=== PATIENT | male | born 1995 | race Hispanic/Latino ===

== ENCOUNTER 2019-10-06 15:21 | Outpatient (CLI) | payer MEDICAID, SELFPAY ==
--- NOTE | ~2019-10-06 | XR_ITS ---
EXAMINATION: XR scoliosis survey DATE: 10/06/2019 16:34 INDICATION: Scoliosis TECHNIQUE: Standing frontal and lateral projections entire spine from the base of the skull through t he pelvis were obtained on separate overlapping images. COMPARISON: None. FINDINGS: , Complement of 7 cervical, 12 paired rib-bearing thoracic and 5 nonrib-bearing lumbar segments. Mild lumbar levorotoscoliosis with 10 degrees levocurvature measured between T12 and L4. Sagittal alignme nt is normal. Vertebral body and disc heights are normal. The apex of the right femoral head lies 7 m m cephalad to the apex of the left femoral head resulting in slight leftward pelvic tilt. The plumbli ne from the epicenter of C7 lies approximately 10 mm the left of the epicenter of S1. Lungs are clear . Heart size is normal. Normal bowel gas pattern. IMPRESSION: 1. Mild lumbar levorotoscoliosis. Reviewed, dictated and finalized at [facility]. [employer]
== END 2019-10-06 15:22 | disposition home or self-care (01) ==
LOC: ANHIMG 15:32
PROVIDERS: PCP Family Medicine; Visit Provider Family Medicine
DX: M99.02 Segmental and somatic dysfunction of thoracic region (principal); M99.03 Segmental and somatic dysfunction of lumbar region
CPT/HCPCS: 72082

== ENCOUNTER 2019-12-14 08:30 | Outpatient (RCR) | payer OTHER, SELFPAY ==
--- NOTE | 2019-11-17 09:21 | PTOPEVAL ---
PHYSICAL THERAPY EVALUATION AND PLAN OF CARE 11-17-2019 The PT evaluation was completed today for the diagnosis of scoliosis of spine and chronic back pain. The plan of treatment is scheduled for 2x/week for 4 weeks. Thank you for referring Austen Reaves to [facility]. Please review, sign, date and return this plan of care CARMELITA. I agree with and certify that the following plan of care is medically necessary. Referring Physician Date Attending Provider: Collette Bauer MD *PT Outpatient Evaluation Start: 11/17/19 08:31 Document 11/17/19 08:31 JEWEL (Rec: 11/17/19 09:21 JEWEL [id number]) Outpatient Past Medical History Past Medical History Source of Past Medical History Patient Neurological History Hx Neurological Disorders No Significant History Cardiovascular History Hx Hypercholesterolemia Yes: no meds, just watching Respiratory History Hx Respiratory Disorders No Significant History Gastrointestinal History Hx Gastrointestinal Disorders No Significant History Genitourinary History Hx Genitourinary Disorders No Significant History Musculoskeletal History Hx Back Pain Yes: scoliosis of spine Hematological History Hx Hematological Disorders No Significant History Endocrine History Hx Endocrine Disorders No Significant History HEENT History Hx HEENT Disorders No Significant History Evaluation Information Problem Diagnosis scoliosis of spine, chronic back pain Onset 2 months ago Subjective Information gradual increase back pain, Query Text:As Reported By Patient/ with work doing--[employer]; Family worse over the past 4 years; about 2 months ago, when stopped working as much, pain is worse; going to do MRI- but insurance not approved it yet Diagnostic Tests X-Rays For This Problem Yes: scoliosis of spine; Previous Treatments Previous Treatments For This Problem no PT for back Prior Level of Function Activity Level (Last 3 Months) Occupation [employer];not doing heavy lifting; now driving trailers, managing job sites; Hand Dominance Right Activity of Daily Living Ability Independent Indoor/Home Mobility Independent Community Mobility Independent Stairs Ability Independent Functional Cognition (Planning, Shopping Independent , Taking Medications) Cooking Yes Cleaning Yes Laundry Yes Shopping Yes Driving Yes Medications Home Meds (Include: OTC, RX, Vitamins, m
--- NOTE | 2019-12-05 08:39 | PCPTNOTE ---
Patient called & cancelled scheduled appointment this date stated unable to make it.
--- NOTE | 2019-12-14 09:16 | PTOPEVAL ---
PHYSICAL THERAPY DISCHARGE 12-14-2019 Austen has received 8 PT sessions, from November 16 to today, for the diagnosis of scoliosis and chronic back pain. Compared to the initial evaluation: pain rating is the same; he has improved with reported sleeping tolerance, standing trunk posture/position, posture awareness, thoracic motion with trunk rotation and all 4 arch/sag stretch, performs correct lifting technique with floor/waist lift and has a good home exercise program. He continues to report increased pain with [employer] and physical activity. And has muscle spasms over thoracic paraspinals on R and L. Thank you for referring Austen Reaves to [facility]. Please review, sign, date and return this plan of care CARMELITA. I agree with and certify that the following plan of care is medically necessary. Referring Physician Date Attending Provider: Collette Bauer MD *PT Outpatient Discharge Document 12/14/19 08:30 JEWEL (Rec: 12/14/19 09:12 JEWEL [id number]) Subjective Information Austen reports: back hurts all time; cannot do madyson-makes pain worse; Pain Assessment Timing of Pain Assessment Timing of Pain Assessment Assessment Pain Scale Pain Scale Used Numeric (1 - 10) Self Report Pain Assessment Bilateral Back Reported Pain Level 4 Pain Description Sharp,Tightness Pain Frequency Chronic Other Pain Description tense in back: thoracic and upper lumbar paraspinals Lowest Pain Intensity 4 Greatest Pain Intensity 7 Pain Aggravating Factors Exercise/Activity Other Pain Aggravating Factors [employer] work 7 hours;with sleeping awaken 1-2x/wk Pain Behaviors Anxious,Grimacing Pain Relief Interventions Used By Inactivity/Rest,Medication, Patient Position Change Other Alleviating Interventions stretch; medicine:hydrocodone PRN- once/wk Additional Pain Comments has not used heat at home- discussed PRN use to decrease muscle tightness Pain Score Pain Score 4: Self Report Lower Extremity Muscle Strength Testing General Lower Extremity Strength Gross Lower Extremity Strength B UE Lift floor/waist: max lift for 3 reps: 40#-reports stop due to getting heavy and if any heavier would start to use back muscles to lift it recumbant bike level 2 resistance x 5 minutes; all 4 arch/sag with minimal thoracic motion; with Alt arm /leg lift decreased stability over lumbar area; prone knee fle
== END 2019-12-14 11:00 | disposition home or self-care (01) ==
LOC: ANHPT 08:30
PROVIDERS: PCP Family Medicine; Visit Provider Family Medicine
DX: M41.9 Scoliosis, unspecified (principal)
CPT/HCPCS: 97014; 97110; 97140; 97161; G0283

== ENCOUNTER 2020-02-11 09:32 | Emergency (ER) | payer OTHER, SELFPAY ==
[2020-02-11 09:40] VITALS: BP 133/72; PULSE 65; RESP 18; TEMP 36.2; O2SAT 100
[2020-02-11 10:24] VITALS: BP 125/85; PULSE 68; RESP 20; O2SAT 100
--- NOTE | 2020-02-11 10:46 | ED.GENADULT ---
HPI - General Adult General Chief complaint: Headache Stated complaint: lyon/vomiting Time Seen by Provider: 02/11/20 10:42 Source: patient Mode of arrival: ambulatory Limitations: no limitations History of Present Illness HPI narrative: 24-year-old male patient presents to the [facility] with complaints of a headache that started about 4 5:00 this morning. Patient states it is a frontal headache and rates it 10 out of 10. Patient states he is also vomited 7 times. Complains of photophobia but denies any sensitivity to sound. Patient denies any recent injury, falls are trauma to the head. Patient denies any recent alcohol or drug use. Patient states he had a migraine headache similar to this last week and states he just kind of toughing it out and it did go away. 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 Patient denies taking anything for the headache prior to arrival today. Patient denies any weakness on one side of the body of the other. Denies any pain with urination. Patient denies any fevers. Chest pain, shortness of breath or abdominal pain. Related Data Allergies Allergy/AdvReac Type Severity Reaction Status Date / Time No Known Allergies Allergy Verified 02/11/20 09:42 Review of Systems Review of Systems: Narrative: CONSTITUTIONAL: Denies fever, chills, or sweats. EYES: Denies visual changes, redness, or discharge. ENT: Denies rhinorrhea, congestion, sore throat, or otalgia. CARDIOVASCULAR: Denies chest pain, palpitations, or edema. RESPIRATORY: Denies cough or dyspnea. GASTROINTESTINAL: Denies abdominal pain, nausea, vomiting, or diarrhea. GENITOURINARY: Denies dysuria or hematuria. SKIN: Denies rash or itching. MUSCULOSKELETAL: Denies back pain, joint pain, or myalgia. NEUROLOGIC: Positive frontal headache, denies numbness, or weakness. PSYCHIATRIC: Denies anxiety or depression. PMFSH Social History Social History Gender identity (if verbalized by the patient): Male Comments At the time of my signature I agree with nursing past medical history, surgical, social, and family history. There is no relevant family history pertinent to the presenting complaint. Exam Narrative: Exam Narrative: GENERAL: Well-appearing, well-nourished, and in no acute distress. HEAD: Normocephalic, atraumatic. EYES: PERRLA and EOM intact without limitation or complaint of pain, no periorbital soft tissue swelling ,no erythema, warmth or tenderness noted, no obvious deformity. No crusting or swelling.no tearing or draining. photophobia present. No nystagmus No FB or lesion on lid eversion. Corneas grossly clear, no obvious FB or hyphens/hypopyon. No injection to sclera. Lids and lashes clear.. ENT: Nares with erythema and edema noted bilaterally, no rhinorrhea or epistaxis. Mucous membranes moist. Posterior pharynx with no erythema, tonsillectomy, exudates or lesions present. There is fluid noted behind bilateral TMs on exam. NECK: Supple. No lymphadenopathy CHEST: Clear to auscultation. No respiratory distress. Patient able talk in clear complete sentences. HEART: Regular rate and rhythm. No murmur heard. Normal peripheral pulses. ABDOMEN: Soft, nontender, nondistended, normal active bowel sounds. EXTREMITIES: Normal range of motion. No edema. SKIN: Warm, dry, no rash. NEURO: Alert and oriented x4, GCS 15. Cranial nerves II through XII grossly intact. No focal neurological deficits. Normal muscle strength and tone. Normal deep tendon reflexes. Negative Babinski, normal finger to nose coordination he had normal heel to lutz glide. Speech is clear. Normal gait. Negative Romberg and no pronator drift Course Reevaluation(s) Reevaluation #1: Reevaluated patient. Patient states is his headache is much better rates about 3-4 out of 10 at this time. Patient sensitivity to the light has improved. Discussed with patient that it is hard to
[2020-02-11] MEDS: KETOROLAC 30 MG/ML VIAL (*BKC) IV PUSH (11:21)
[2020-02-11] MEDS: SODIUM CHLORIDE 0.9% IV 1,000 ML 999 ML IV CONT (11:22)
[2020-02-11] MEDS: ONDANSETRON INJ 4 MG/2 ML VIAL IV PUSH (11:22)
[2020-02-11 11:32] LABS: Basophils Percent Auto 0.4 % (0.2-1.2); Eosinophils Percent Auto 0.4 % (0-4.4); Hematocrit 42.9 % (42.0-52.0); Immature Granulocyte Absolute 0.02 K/mm3 (0.00-0.031); Immature Granulocyte Percent A 0.2 % (0-0.5); Lymphocytes Absolute Auto 0.91 K/mm3 (0.9-3.2); Lymphocytes Percent Auto 9.9 % (18.3-44.2); Mean Corpuscular Volume 85.8 fl (80-100); Monocytes Absolute Auto 0.3 K/mm3 (0.1-0.6); Monocytes Percent Auto 3.7 % (2.6-8.5); Neutrophils Absolute Auto 7.8 K/mm3 (1.3-6.7); Neutrophils Percent Auto 85.4 % (45.5-73.1); Platelet Count Result 220 k/mm3 (150-375); Red Cell Distribution Width 12.1 % (11.5-14.5); White Blood Count 9.2 K/mm3 (4.5-10.0)
[2020-02-11 11:44] LABS: Alanine Aminotransferase 17 U/L (4-50); Albumin Level 4.8 g/dL (3.5-5.1); Alkaline Phosphatase 78 U/L (38-126); Aspartate Amino Transferase 22 U/L (17-59); Bilirubin,Total 2.5 mg/dL (0.2-1.3); Blood Urea Nitrogen 15 mg/dL (9-20); Calcium 9.6 mg/dL (8.4-10.2); Carbon Dioxide 26 mmol/L (22-30); Chloride 101 mmol/L (98-107); Estimated CRCL calculation 77 ml/min; Estimated Glomerular Filt Rate > 60; Glucose 95 mg/dL (75-110); Potassium 3.7 mmol/L (3.4-5.0); Sodium 139 mmol/L (137-145)
[2020-02-11 12:47] VITALS: BP 136/68; PULSE 80; RESP 17; O2SAT 98
== END 2020-02-11 12:47 | disposition home or self-care (01) ==
PROVIDERS: Emergency Provider Nurse Practitioner Family; PCP Family Medicine
DX: G43.909 Migraine, unspecified, not intractable, without status migrainosus (principal)
CPT/HCPCS: 36415; 80053; 85025; 96361; 96374; 96375; 99284; J1200; J1885; J2405; J7030

== ENCOUNTER 2021-08-12 06:27 | Emergency (ER) | payer OTHER, SELFPAY ==
[2021-08-12 06:30] VITALS: BP 148/69; PULSE 90; RESP 18; TEMP 36.4; O2SAT 98
== END 2021-08-12 09:00 | disposition left against medical advice (07) ==
LOC: ANHED 06:51
PROVIDERS: PCP Family Medicine
DX: Z53.21 Procedure and treatment not carried out due to patient leaving prior to being seen by health care provider (principal); R11.2 Nausea with vomiting, unspecified
CPT/HCPCS: 99199

== ENCOUNTER 2022-02-18 09:53 | Outpatient (CLI) | payer OTHER, SELFPAY ==
--- NOTE | ~2022-02-18 | XR_ITS ---
XR scoliosis survey DATE: 02/18/2022 10:26 INDICATION: Chronic back pain, lumbar area TECHNIQUE: Standing AP and lateral views of the spine COMPARISON: None FINDINGS: There is 4 degrees levoscoliosis measured from T12 to L4. No fracture or dislocation or bone destruction of the cervical, thoracic or lumbar spine. No spondylo listhesis. The cervical, thoracic and lumbar and lumbosacral interspaces are preserved. The sacroiliac joints are intact. Right femoral head is 9 mm higher than left femoral head. IMPRESSION: Minimal levoscoliosis of the lumbar spine Right femoral head is 9 mm higher than left femoral head. Reviewed, dictated and finalized at [facility]. Reviewed, dictated and finalized at location [facility].
== END 2022-02-18 09:54 | disposition home or self-care (01) ==
LOC: ANHIMG 09:55
PROVIDERS: PCP Physician Assistant; Visit Provider Physician Assistant
DX: G89.29 Other chronic pain (principal); M41.9 Scoliosis, unspecified
CPT/HCPCS: 72082